=== PATIENT | male | born 1950 | race Asian ===

== ENCOUNTER 2019-01-10 08:45 | Emergency (ER) | payer OTHER ==
[~2019-01-10] VITALS: Ht 172.7 cm; Wt 77.1 kg
[2019-01-10 08:55] VITALS: BP 146/84
[2019-01-10] MEDS ORDERED: KETOROLAC TROMETH 30 MG/ML 1ML VIAL IM ONE (10:30)
== END 2019-01-10 11:20 | disposition home or self-care (01) ==
LOC: EDBD 08:45 → ER 08:45
DX: M54.5 Low back pain (principal); V43.62XA Car passenger injured in collision with other type car in traffic accident, initial encounter; Y93.89 Activity, other specified; Y92.488 Other paved roadways as the place of occurrence of the external cause; Y99.8 Other external cause status
CPT/HCPCS: 72100; 96372; 99283; J1885